=== PATIENT | male | born 1965 | race American Indian/Alaskan Native ===

== ENCOUNTER 2018-06-03 21:26 | Emergency (ER) | payer SELFPAY ==
--- NOTE | 2018-06-03 21:31 | Emergency Department Report ---
ED Neuro Deficit HPI - General Chief Complaint: Neuro Symptoms/Deficit Stated Complaint: POSS STROKE Time Seen by Provider: 06/03/18 21:28 Source: EMS (verbal report received from EMS.ems notes not available at time of chart dictation) Limitations: Altered Mental Status, Physical Limitation - History of Present Illness Initial Comments: Past medical history: A. gibran on Coumadin, diabetes, bilateral lower extremity below-knee amputation This is a 52-year-old gentleman who is not known to this provider previously, who is brought to the hospital by EMS as a possible code stroke. EMS thinks, but is not certain, that his last known well time is 5:00 PM. Articulated deficits include right-sided hemiparesis, right-sided facial droop and slurred speech. No family is currently available for collateral information and to corroborate last known well time. EMS indicated normal fingerstick in the field. They indicated a blood pressure in the 230s systolic in the field. Upon arrival to the ER, the patient is awake, and is able to indicate yes no answers to certain questions, but is quite dysarthric, and cannot give open ended answers. An emergent noncontrast CT scan of the brain demonstrated a left temporal parietal hemorrhage. Initial GCS is 14. Vitamin K's emergently ordered. cardene is ordered on standby. I am currently awaiting an accurate weight on the patient to dose for factor prothrombin complex concentrate. EMS also verbally indicated that the patient had a nonspecific convulsive event , and indicated that his right upper extremity was convulsing, which is since resolved, and he may have had some facial twitching. This hospital does not have neurology, or neurosurgery available for consultation. Will have the patient to a facility that has the aforementioned services as well as neuro critical care for his presumed Coumadin associated hemorrhage. -: unknown Location: speech, right face, right arm, right leg Presenting Symptoms: Present: Weak/Paralyzed One Side, Unable to Speak Clearly History of same: No Place: home Severity: Unable to Determine Quality: other Improves With: other Worsens With: other On Anticoagulants: Yes Context: other Associated Symptoms: other ED Review of Systems ROS: Stated complaint: POSS STROKE Other details as noted in HPI Comment: Unobtainable due to pts medical conditions ED Neuro Physical Exam - General Limitations: Altered Mental Status, Physical Limitation General appearance: anxious Suspected Stroke: Yes - Head Head exam: Present: atraumatic, normocephalic - Eye Eye exam: Present: PERRL, EOMI - ENT ENT exam: Present: normal exam, normal external ear exam - Neck Neck exam: Present: normal inspection, full ROM. Absent: tenderness, meningismus - Respiratory Respiratory exam: Absent: respiratory distress, wheezes, rales, rhonchi, stridor - Cardiovascular Cardiovascular Exam: Present: tachycardia, irregular rhythm, normal heart sounds - GI/Abdominal GI/Abdominal exam: Present: soft. Absent: distended, tenderness, guarding, rebound, rigid, pulsatile mass - Extremities Exam Extremities exam: Present: other (2+ pulses noted in the bilateral upper extremities. Bilateral lower extremity below-knee amputations. 2+ femoral pulses noted bilaterally. Compartments soft.). Absent: tenderness, calf tenderness - Back Exam Back exam: Present: normal inspection. Absent: paraspinal tenderness, vertebral tenderness - Neurological Exam Neurological exam: Present: motor sensory deficit (4 out of 5 strength right upper, right lower extremity. Sensation decreased to light touch right upper, right lower extremity. 5 out of 5 strength left upper, left lower extremity). Absent: CN II-XII intact (there is a right-sided facial droop. The patient is dysarthric.) - NIHSS Assessment Interval: Baseline 1a. Level of Consciousness: arousable/minor stimuli 1b. LOC Questions: dysarthric/intubated 1c. LOC Commands: performs 1 task correctly 2. Best Gaze: normal 3. Visual: no visual loss 4. Facial Palsy: unilateral complete paralysis 5b. Motor Arm Right: drift 5a. Motor Arm Left: no drift 6a. Motor Leg Left: no drift 6b. Motor Leg Right: drift 7. Limb Ataxia: present 1 limb 8. Sensory: mild/moderate sensory loss 9. Best Language: mild/moderate aphasia 10. Dysarthria: severe dysarthria 11. Extinction/Inattention: visual/tactile inattention Total Score: 14 Stroke Severity: Moderate Stroke - Psychiatric Psychiatric exam: Present: anxious - Skin Skin exam: Present: warm ED Course - Reevaluation(s) Reevaluation #1: 06/03/18 22:15 Patient had a partial seizure. This is terminated with 2 mg of Ativan. Fosphenytoin is ordered. Seizure precautions ordered. - Lab Data Result diagrams: 06/03/18 21:33 06/03/18 21:33 Lab Results 06/03/18 06/03/18 06/03/18 Range/Units 21:33 21:33 21:33 WBC 60.1 H* (4.5-11.0) K/mm3 RBC 4.93 (3.65-5.03) M/mm3 Hgb 10.9 L (11.8-15.2) gm/dl Hct 34.5 L (35.5-45.6) % MCV 70 L (84-94) fl MCH 22 L (28-32) pg MCHC 32 (32-34) % RDW 21.8 H (13.2-15.2) % Plt Count 303 (140-440) K/mm3 Lymph % (Auto) Liaison Planner Lymph # Liaison Planner Seg Neutrophils % Liaison Planner PT 96.8 H (12.2-14.9) Sec. INR 11.30 H* (0.87-1.13) APTT 171.7 H* (24.2-36.6) Sec. Thrombin Time 16.9 (15.1-19.6) Sec. Sodium 137 (137-145) mmol/L Potassium 4.8 (3.6-5.0) mmol/L Chloride 100.7 (98-107) mmol/L Carbon Dioxide 22 (22-30) mmol/L Anion Gap 19 mmol/L BUN 41 H (9-20) mg/dL Creatinine 2.1 H (0.8-1.5) mg/dL Estimated GFR 33 ml/min BUN/Creatinine Ratio 20 % Glucose 199 H (75-100) mg/dL Calcium 9.0 (8.4-10.2) mg/dL Total Bilirubin 0.40 (0.1-1.2) mg/dL AST 12 (5-40) units/L ALT 10 (7-56) units/L Alkaline Phosphatase 86 (35-129) units/L Total Creatine Kinase 46 L (55-170) units/L CK-MB (CK-2) 2.1 (0.0-4.0) ng/mL CK-MB (CK-2) Rel Index 4.5 H (0-4) Troponin T 0.029 (0.00-0.029) ng/mL Total Protein 6.5 (6.3-8.2) g/dL Albumin 3.7 L (3.9-5) g/dL Albumin/Globulin Ratio 1.3 % Acetaminophen (10.0-30.0) ug/mL Plasma/Serum Alcohol (0-0.07) % 06/03/18 06/03/18 Range/Units 21:33 21:44 WBC (4.5-11.0) K/mm3 RBC (3.65-5.03) M/mm3 Hgb (11.8-15.2) gm/dl Hct (35.5-45.6) % MCV (84-94) fl MCH (28-32) pg MCHC (32-34) % RDW (13.2-15.2) % Plt Count (140-440) K/mm3 Lymph % (Auto) Lymph # Seg Neutrophils % PT (12.2-14.9) Sec. INR (0.87-1.13) APTT (24.2-36.6) Sec. Thrombin Time (15.1-19.6) Sec. Sodium (137-145) mmol/L Potassium (3.6-5.0) mmol/L Chloride (98-107) mmol/L Carbon Dioxide (22-30) mmol/L Anion Gap mmol/L BUN (9-20) mg/dL Creatinine (0.8-1.5) mg/dL Estimated GFR ml/min BUN/Creatinine Ratio % Glucose (75-100) mg/dL Calcium (8.4-10.2) mg/dL Total Bilirubin (0.1-1.2) mg/dL AST (5-40) units/L ALT (7-56) units/L Alkaline Phosphatase (35-129) units/L Total Creatine Kinase (55-170) units/L CK-MB (CK-2) (0.0-4.0) ng/mL CK-MB (CK-2) Rel Index (0-4) Troponin T (0.00-0.029) ng/mL Total Protein (6.3-8.2) g/dL Albumin (3.9-5) g/dL Albumin/Globulin Ratio % Acetaminophen < 5.0 L (10.0-30.0) ug/mL Plasma/Serum Alcohol < 0.01 (0-0.07) % Labs 06/03/18 06/03/18 06/03/18 21:33 21:33 21:33 WBC 60.1 H* RBC 4.93 Hgb 10.9 L Hct 34.5 L MCV 70 L MCH 22 L MCHC 32 RDW 21.8 H Plt Count 303 Lymph % (Auto) Liaison Planner Lymph # Liaison Planner Seg Neutrophils % Liaison Planner PT 96.8 H INR 11.30 H* APTT 171.7 H* Thrombin Time 16.9 Sodium 137 Potassium 4.8 Chloride 100.7 Carbon Dioxide 22 Anion Gap 19 BUN 41 H Creatinine 2.1 H Estimated GFR 33 BUN/Creatinine Ratio 20 Glucose 199 H Calcium 9.0 Total Bilirubin 0.40 AST 12 ALT 10 Alkaline Phosphatase 86 Total Creatine Kinase 46 L CK-MB (CK-2) 2.1 CK-MB (CK-2) Rel Index 4.5 H Troponin T 0.029 Total Protein 6.5 Albumin 3.7 L Albumin/Globulin Ratio 1.3 Acetaminophen 06/03/18 21:44 WBC RBC Hgb Hct MCV MCH MCHC RDW Plt Count Lymph % (Auto) Lymph # Seg Neutrophils % PT INR APTT Thrombin Time Sodium Potassium Chloride Carbon Dioxide Anion Gap BUN Creatinine Estimated GFR BUN/Creatinine Ratio Glucose Calcium Total Bilirubin AST ALT Alkaline Phosphatase Total Creatine Kinase CK-MB (CK-2) CK-MB (CK-2) Rel Index Troponin T Total Protein Albumin Albumin/Globulin Ratio Acetaminophen < 5.0 L - Radiology Data Radiology results: report reviewed, image reviewed interpreted by me: X-ray of the chest, interpreted by me, no acute disease, poor inspiratory effort , elevated right hemidiaphragm, technique related enhancement/enlargement of mediastinum, most likely related to portable technique. - Medical Decision Making Differential diagnosis, including but not limited to: Intracranial hemorrhage, ischemic stroke, hemorrhagic stroke, renal insufficiency Assessment and plan: 52-year-old gentleman with hemorrhagic stroke and supratherapeutic INR. For these reasons he is not a TPA candidate. These reasons he will not benefit from thrombolysis. He has an INR of 11. Given this, recommended dosing for prothrombin complex concentrate is 50 units per kilogram, with a max dose of 5000 units. He will therefore be given 5000 units of prothrombin complex concentrate, in conjunction with 10 mg of vitamin K IV. Had a bed will be elevated to 30. Case is discussed with neuro critical care physician, Dr. Myers, at [place], who accepted the patient as a transfer. Dr. Kaye, consulting neurosurgeon also on board. Patient indicated permission/consent for transfer. - Core Measures Measure Exclusions: not indicated - Thrombolytic Inclusion/Exclusion Thrombolytic Exclusion Criteria: Symptom Onset > 3 Hours Thrombolytic Contraindications: GI or Other Bleeding Critical Care Time: Yes Critical care time in (mins) excluding proc time.: 45 Critical care attestation.: If time is entered above; I have spent that time in minutes in the direct care of this critically ill patient, excluding procedure time. ED Disposition Clinical Impression: Hemorrhagic stroke, FELY (acute kidney injury), Supratherapeutic INR [id number] IP Is pt being admited?: No Condition: Critical Referrals: PRIMARY CARE, [Primary Care Provider] - 3-5 Days
[2018-06-03 21:37] LABS: Hematocrit 34.5 % (35.5-45.6); Hemoglobin 10.9 gm/dl (11.8-15.2); Mean Corpuscular HGB Conc 32 % (32-34); Mean Corpuscular Volume 70 fl (84-94); Platelet Count 303 K/mm3 (140-440); Red Blood Count 4.93 M/mm3 (3.65-5.03)
[2018-06-03] MEDS ORDERED: VITAMIN K (ADULT ONLY) 10 MG in NACL 0.9% 50 ML IV ONE (21:41)
[2018-06-03 21:44] LABS: Mean Corpuscular Hemoglobin 22 pg (28-32); Red Cell Distribution Width 21.8 % (13.2-15.2)
[2018-06-03 21:48] LABS: Thrombin Time 16.9 Sec. (15.1-19.6)
--- NOTE | 2018-06-03 21:48 | Cat Scan Report ---
FINAL REPORT PROCEDURE: CT head without contrast. TECHNIQUE: Computerized tomography of the head was performed without contrast material. HISTORY: Stroke symptoms. COMPARISON: No prior studies are available for comparison. FINDINGS: The ventricles are normal in size. There is focal high attenuation material within the anterior portion of the left temporal lobe. This measures approximately 3.3 centimeters x 1.3 centimeters in cross-section. This is consistent with acute intraparenchymal hemorrhage. There is also extensive high attenuation material within the adjacent sulci of the left temporal and left frontal lobes. This indicates subarachnoid hemorrhage. There is mild compression upon the frontal horn of the left lateral ventricle. There is no significant left to right shift of the midline indicators. The calvarium appears intact. The mastoid air cells and the visualized paranasal sinuses are clear. IMPRESSION: Acute left-sided intraparenchymal and subarachnoid hemorrhage as described.
[2018-06-03 21:53] LABS: Creatine Kinase MB 2.1 ng/mL (0.0-4.0)
[2018-06-03 21:54] LABS: INR 11.3 (0.87-1.13)
[2018-06-03 21:55] LABS: Albumin 3.7 g/dL (3.9-5); Partial Thromboplastin Time 171.7 Sec. (24.2-36.6)
[2018-06-03] MEDS ORDERED: KCENTRA (1,000 U) VIAL IV STA (21:56)
[2018-06-03] MEDS ORDERED: CARDENE 50 MG in NACL 0.9% 250ML 230 ML IV SCH (22:00)
[2018-06-03] MEDS ORDERED: CEREBYX IV ONE ×2 (22:13→22:30)
[2018-06-03] MEDS ORDERED: ATIVAN IV NR (22:15)
[2018-06-03] MEDS ORDERED: ATIVAN ONE (22:16)
[2018-06-03] MEDS ORDERED: ATIVAN IV ONE (22:17)
[2018-06-03] MEDS ORDERED: [UNRECOGNIZED DRUG - OTHER] IV ONE (22:30)
[2018-06-03] MEDS ORDERED: NACL IV ONE (22:30)
[2018-06-03 23:19] LABS: Band Neutrophils # (Manual) 0.3 K/mm3; Basophils % (Manual) 0.5 % (0.0-1.8); Monocytes % (Manual) 0.5 % (0.0-7.3); Total Cells Counted 200
[2018-06-03 23:20] LABS: Anisocytosis 1+; Burr Cells 1+; Hypochromasia 1+; Ovalocytes 1+
[2018-06-03 23:21] LABS: Platelet Estimate Consistent w Auto; Smudge Cells 2+
[2018-06-03 23:33] VITALS: BP 90/51
--- NOTE | 2018-06-03 23:41 | XRay Report ---
FINAL REPORT PROCEDURE: Chest. TECHNIQUE: Portable AP view. HISTORY: Nausea and vomiting, question aspiration. COMPARISON: No prior studies are available for comparison. FINDINGS: The radiograph is slightly underpenetrated. The heart size is borderline. There is mild ectasia of the thoracic aorta. The lungs are grossly clear. There are no pleural effusions. The soft tissues and regional skeleton are unremarkable. IMPRESSION: No evidence of acute disease.
== END 2018-06-03 23:35 | disposition short-term general hospital (02) ==
LOC: ED 21:26
DX: I62.9 Nontraumatic intracranial hemorrhage, unspecified (principal); I61.9 Nontraumatic intracerebral hemorrhage, unspecified; R79.1 Abnormal coagulation profile; N17.9 Acute kidney failure, unspecified; Z79.899 Other long term (current) drug therapy
CPT/HCPCS: 36415; 70450; 71045; 80053; 82550; 82553; 84484; 85007; 85025; 85610; 85670; 85730; 96365; 96367; 96375; 99291; G0480; J2060; J3430; J7195; Q2009; 80320; J7050